=== PATIENT | male | born 1995 | race Asian ===

== ENCOUNTER 2017-02-11 09:52 | Emergency (ER) | payer OTHER ==
[2017-02-11 10:10] VITALS: BP 130/72
== END 2017-02-11 11:06 | disposition home or self-care (01) ==
LOC: ED 09:52
DX: T78.40XA Allergy, unspecified, initial encounter (principal); R03.0 Elevated blood-pressure reading, without diagnosis of hypertension; X58.XXXA Exposure to other specified factors, initial encounter

== ENCOUNTER 2017-11-14 21:43 | Emergency (ER) | payer OTHER ==
[~2017-11-14] VITALS: Ht 170.2 cm; Wt 61.2 kg
[2017-11-14 22:03] VITALS: Ht 170.2 cm; Wt 61.2 kg
[2017-11-15 00:45] VITALS: BP 159/85
== END 2017-11-15 00:45 | disposition home or self-care (01) ==
LOC: ED 21:43
DX: S91.331A Puncture wound without foreign body, right foot, initial encounter (principal); W50.0XXA Accidental hit or strike by another person, initial encounter; Y93.89 Activity, other specified; Y99.8 Other external cause status; Y92.89 Other specified places as the place of occurrence of the external cause
CPT/HCPCS: 90715

== ENCOUNTER 2017-12-21 18:44 | Emergency (ER) | payer OTHER ==
[~2017-12-21] VITALS: Ht 172.7 cm; Wt 58.0 kg
[2017-12-21 19:59] VITALS: BP 110/37
== END 2017-12-21 19:59 | disposition home or self-care (01) ==
LOC: ED 18:44
DX: B34.9 Viral infection, unspecified (principal)